=== PATIENT | male | born 1980 | race Caucasian/White ===

== ENCOUNTER 2022-12-19 22:17 | Emergency (ER) | payer SELFPAY ==
[2022-12-19] MEDS ORDERED: Lidocaine 1% 5 ML VIAL INJECT ONE (22:42)
[2022-12-19] MEDS ORDERED: Diphtheria,Pertussis(Acell),Tetanus Vaccine 0.5 ML Syringe IM ONE (22:42)
[2022-12-19] MEDS ORDERED: Ibuprofen 600 MG Tab PO ONE (22:42)
[2022-12-19] MEDS ORDERED: Cephalexin 500 MG Cap PO ONE (22:42)
== END 2022-12-19 23:04 | disposition home or self-care (01) ==
LOC: MW.ED 22:17
DX: S02.5XXA Fracture of tooth (traumatic), initial encounter for closed fracture (principal); S01.511A Laceration without foreign body of lip, initial encounter; I10 Essential (primary) hypertension; Z23 Encounter for immunization; Z86.16 Personal history of COVID-19; W20.8XXA Other cause of strike by thrown, projected or falling object, initial encounter
CPT/HCPCS: 12013; 90471; 90715; 99283; 99283-25; A9270-GY; J3490